=== PATIENT | male | born 1980 | race Two or more races ===

== ENCOUNTER 2020-09-08 11:30 | Emergency (ER) | payer OTHER ==
[~2020-09-08] VITALS: Ht 175.3 cm; Wt 79.4 kg
[2020-09-08 13:39] VITALS: BP 123/85
== END 2020-09-08 13:41 | disposition home or self-care (01) ==
LOC: ER 11:30 → EDBD 11:30 → ER 13:41
DX: U07.1 COVID-19 (principal)
CPT/HCPCS: 71045